=== PATIENT | male | born 1940 | race Caucasian/White ===

== ENCOUNTER → 2017-08-31 05:34 | Emergency (ER) | payer MEDICARE ==
[~2017-08-31 05:34] MED LIST: Albuterol/Ipratropium NEB.SOL* Albuterol 2.5 MG/Ipratropium 0.5 MG 3 ML INH ONE
[2017-08-31 07:02] LABS: Urine Bacteria Absent (Absent); Urine Bilirubin Negative (Negative); Urine Glucose Negative (Negative); Urine Nitrite Negative (Negative)
[2017-08-31 07:10] LABS: BUN/Creatinine Ratio 18.2 (8-20); EGFR African American 67.3 (>60); EGFR Non-African American 52.3 (>60); Globulin 2.6 g/dL (2-4); Magnesium 1.9 mg/dL (1.9-2.7); Potassium 4.3 mmol/L (3.5-5.0); Total Bilirubin 1.1 mg/dL (0.2-1.0); Total Protein 6.6 g/dL (6.4-8.9); Troponin I 0.01 ng/mL (<0.04)
[2017-08-31 07:16] LABS: Hematocrit 49 % (42-52); Hemoglobin 16.6 g/dl (14.0-18.0); Mean Corpuscular HGB Conc 34 g/dl (31-36); Mean Corpuscular Hemoglobin 31 pg (27-31); Mean Corpuscular Volume 93 fL (80-94); Mean Platelet Volume 8 um3 (7.4-10.4); Red Blood Count 5.29 10^6/ul (4.0-5.4); Red Cell Distribution Width 13 % (10.5-15); White Blood Count 9.5 10^3/ul (3.5-10.8)
--- NOTE | 2017-08-31 08:37 | RAD ---
HISTORY: Left flank pain COMPARISONS: None TECHNIQUE: Multiple contiguous axial CT scans were obtained of the lumbar spine without intravenous contrast, with coronal and sagittal multiplanar reformations. FINDINGS: SPINAL CANAL: Evaluation of the central canal is limited on CT technique; however, there is no obvious canalicular mass or epidural hemorrhage. ALIGNMENT: There is mild scoliotic curvature of the spine. There is grade 1 retrolisthesis of L2 on L3 and L3-L4 with grade 1 anterolisthesis of L5 on S1. VERTEBRAL BODIES: There are bilateral pars defects at L5. There is multilevel anterolateral marginal osteophyte formation. JOINTS: There is diffuse facet osteoarthritis. MUSCULATURE: Unremarkable INTERVERTEBRAL DISCS: There is diffuse loss of intervertebral disc height throughout the spine. AXIAL IMAGES: T12-L1: There is no osseous neural foraminal narrowing or central canal stenosis. L1-L2: There is no osseous neural foraminal narrowing or central canal stenosis. L2-L3: There is no osseous neural foraminal narrowing or central canal stenosis. L3-L4: There is marginal osteophyte formation at the neural foramina bilaterally. There is bilateral facet hypertrophy. There is mild bilateral neural foraminal narrowing. There is no osseous central canal stenosis. L4-L5: There is bilateral facet hypertrophy. There is marginal osteophyte formation at the neural foramina bilaterally. There is mild bilateral neural foraminal narrowing. There is vacuum phenomenon consistent with a small left paracentral disc protrusion, 0.3 cm in depth. There is no osseous central canal stenosis. L5-S1: There is a broad-based disc/rolled disc. There is bilateral facet hypertrophy. There is severe bilateral foraminal. There is no significant osseous central canal stenosis. SOFT TISSUES: There is atherosclerosis of the abdominal aorta. OTHER: None IMPRESSION: 1. SCOLIOSIS. 2. 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 3. DEGENERATIVE DISC DISEASE AND OSTEOARTHRITIS. 4. THERE IS SEVERE BILATERAL NEURAL FORAMINAL NARROWING L5-S1. THERE IS NO OSSEOUS CENTRAL CANAL STENOSIS.
--- NOTE | 2017-08-31 10:11 | RAD ---
HISTORY: Chest pain COMPARISONS: December 26, 2013 VIEWS: 4: Frontal dual-energy and lateral views of the chest. FINDINGS: CARDIOMEDIASTINAL SILHOUETTE: The cardiomediastinal silhouette is normal. HILL: The hill are normal. PLEURA: The costophrenic angles are sharp. No pleural abnormalities are noted. LUNG PARENCHYMA: The lungs are clear. ABDOMEN: The upper abdomen is clear. There is no subphrenic gas. BONES AND SOFT TISSUES: No bone or soft tissue abnormalities are noted. OTHER: None. IMPRESSION: NO ACTIVE CARDIOPULMONARY DISEASE.
[2017-08-31 11:41] VITALS: BP 151/96
--- NOTE | 2017-08-31 15:52 | ED ---
Raphael Rabago Thomas, scribed for Israel Garber MD on 08/31/17 at 0737 . Abdominal Pain/Male - HPI Summary HPI Summary: The pt is a 77 y/o M presenting to the ED c/o L flank pain that began yesterday at 20:00 when he was coughing. The pain is constant. The pain is described as an ache. The pain radiates into his left lower back. The pain is rated 5/10. The pain is aggravated by moving his LLE up and down as well as coughing. It is alleviated by nothing. When the patient lifts his LLE, his pain radiates to his back. The pain is not reproducible. The patient has treated the pain with nothing PLATER HOT DIP. Pt additionally c/o urinary frequency. He was unable to sleep last night secondary to the pain. PMHx: CVA, HTN. SHx: no smoking, no alcohol use, no illicit drug use. His is in the room. He declines pain medication. - History of Current Complaint Chief Complaint: EDFlankPain Stated Complaint: LLQ PAIN Time Seen by Provider: 08/31/17 07:29 Hx Obtained From: Patient, Family/Shear Operator Helper - is in the room Onset/Duration: Lasting Days - onset yesterday at 20:00, Still Present Timing: Constant Severity Currently: Moderate Pain Intensity: 5 Pain Scale Used: 0-10 Numeric Location: Flank - Left flank Radiates: Yes Radiates to: Back Character: Other: - Ache Aggravating Factor(s): Movement - moving his LLE up and down, Deep Breaths Alleviating Factor(s): Nothing Associated Signs And Symptoms: Positive: Other - Urinary frequency, insomnia last night secondary to the pain. - Allergies/Home Medications Allergies/Adverse Reactions: Allergies Allergy/AdvReac Type Severity Reaction Status Date / Time No Known Allergies Allergy Verified 06/03/16 13:47 PMH/Surg Hx/FS Hx/Imm Hx Previously Healthy: No Cardiovascular History: Reports: Hx Hypertension, Hx Syncope, Other Cardiovascular Problems/Disorders - blocked carotid Respiratory History: Reports: Hx Sleep Apnea - CPAP at home at night Musculoskeletal History: Denies: Hx Arthritis, Hx Osteoporosis Sensory History: Reports: Hx Vision Problem, Hx Hearing Problem Opthamlomology History: Reports: Hx Vision Problem - Surgical History Surgery Procedure, Year, and Place: appy Hx Anesthesia Reactions: No Infectious Disease History: No Infectious Disease History: Denies: Traveled Outside the [place] in Last 30 Days - Family History Known Family History: Positive: Diabetes, Other - CHF - Social History Alcohol Use: None Substance Use Type: Reports: None Smoking Status (MU): Never Smoked Tobacco Review of Systems Negative: Fever Positive: Other - Nasal congestion Positive: Chest Pain Positive: Cough Positive: frequency, flank pain - L flank pain onset yesterday at 20:00 Neurological: Other - Insomnia last night secondary to the pain All Other Systems Reviewed And Are Negative: Yes Physical Exam Triage Information Reviewed: Yes Vital Signs On Initial Exam: Initial Vitals Temp Pulse Resp BP Pulse Ox 98.8 F 120 20 180/111 96 08/31/17 05:38 08/31/17 05:38 08/31/17 05:38 08/31/17 05:38 08/31/17 05:38 Vital Signs Reviewed: Yes Appearance: Positive: Well-Appearing, No Pain Distress Skin: Positive: Warm, Skin Color Reflects Adequate Perfusion, Dry Head/Face: Positive: Normal Head/Face Inspection Eyes: Positive: Normal ENT: Positive: Normal ENT inspection Neck: Positive: Supple, Nontender Respiratory/Lung Sounds: Positive: Clear to Auscultation, Breath Sounds Present Cardiovascular: Positive: RRR Abdomen Description: Positive: Nontender, Soft Bowel Sounds: Positive: Present Musculoskeletal: Positive: Other - He is tender to the left paralumbar area Neurological: Positive: Normal Psychiatric: Positive: Normal, Affect/Mood Appropriate - [place] Coma Scale Coma Scale Total: 15 Diagnostics - Vital Signs Vital Signs Temp Pulse Resp BP Pulse Ox 08/31/17 05:38 98.8 F 120 20 180/111 96 - Laboratory Lab Results: Lab Results 08/31/17 08/31/17 08/31/17 Range/Units 06:30 06:30 06:30 WBC 9.5 (3.5-10.8) 10^3/ul RBC 5.29 (4.0-5.4) 10^6/ul Hgb 16.6 (14.0-18.0) g/dl Hct 49 (42-52) % MCV 93 (80-94) fL MCH 31 (27-31) pg MCHC 34 (31-36) g/dl RDW 13 (10.5-15) % Plt Count 217 (150-450) 10^3/ul MPV 8 (7.4-10.4) um3 Neut % (Auto) 82.6 (38-83) % Lymph % (Auto) 6.7 L (25-47) % [place] % (Auto) 9.1 H (1-9) % Eos % (Auto) 1.4 (0-6) % Baso % (Auto) 0.2 (0-2) % Absolute Neuts (auto) 7.9 H (1.5-7.7) 10^3/ul Absolute Lymphs (auto) 0.6 L (1.0-4.8) 10^3/ul Absolute Monos (auto) 0.9 H (0-0.8) 10^3/ul Absolute Eos (auto) 0.1 (0-0.6) 10^3/ul Absolute Basos (auto) 0 (0-0.2) 10^3/ul Absolute Nucleated RBC 0.01 10^3/ul Nucleated RBC % 0.1 Sodium 141 (133-145) mmol/L Potassium 4.3 (3.5-5.0) mmol/L Chloride 110 (101-111) mmol/L Carbon Dioxide 24 (22-32) mmol/L Anion Gap 7 (2-11) mmol/L BUN 24 (6-24) mg/dL Creatinine 1.32 H (0.67-1.17) mg/dL Est GFR ( Amer) 67.3 (>60) Est GFR (Non-Af Amer) 52.3 (>60) BUN/Creatinine Ratio 18.2 (8-20) Glucose 120 H (70-100) mg/dL Calcium 10.0 (8.6-10.3) mg/dL Magnesium 1.9 (1.9-2.7) mg/dL Total Bilirubin 1.10 H (0.2-1.0) mg/dL AST 16 (13-39) U/L ALT 13 (7-52) U/L Alkaline Phosphatase 79 (34-104) U/L Troponin I 0.01 (<0.04) ng/mL Total Protein 6.6 (6.4-8.9) g/dL Albumin 4.0 (3.2-5.2) g/dL Globulin 2.6 (2-4) g/dL Albumin/Globulin Ratio 1.5 (1-3) Urine Color Yellow Urine Appearance Clear Urine pH 6.0 (5-9) Ur Specific [place] 1.015 (1.010-1.030) Urine Protein 1+(30 mg/dl) H (Negative) Urine Ketones Negative (Negative) Urine Blood Negative (Negative) Urine Nitrate Negative (Negative) Urine Bilirubin Negative (Negative) Urine Urobilinogen Negative (Negative) Ur Leukocyte Esterase Negative (Negative) Urine WBC (Auto) Trace(0-5/hpf) (Absent) Urine RBC (Auto) Trace(0-2/hpf) (Absent) Urine Bacteria Absent (Absent) Urine Glucose Negative (Negative) Urine Ascorbic Acid * H (Negative) Result Diagrams: 08/31/17 06:30 08/31/17 06:30 Lab Statement: Any lab studies that have been ordered have been reviewed, and results considered in the medical decision making process. - Radiology CXR Xray Interpretation: No Acute Changes - No active cardiopulmonary disease. ED physician has read this report and agrees. Radiology Interpretation Completed By: Radiologist - CT CT L-Spine CT Interpretation: No Acute Changes - 1. SCOLIOSIS. 2. 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 3. DEGENERATIVE DISC DISEASE AND OSTEOARTHRITIS. 4. THERE IS SEVERE BILATERAL NEURAL FORAMINAL NARROWING L5-S1. THERE IS NO OSSEOUS CENTRAL CANAL STENOSIS. ED Physician has reviewed this report and agrees. CT Interpretation Completed By: Radiologist - EKG 09:19 Cardiac Rate: Tachycardia - 101 BPM EKG Rhythm: Sinus Tachycardia EKG Interpretation: Nonspecific changes. Re-Evaluation - Re-Evaluation First Eval Re-Evaluation Time: 09:15 Change: Worse Comment: The patient is now complaining of a burning anterior chest pain. He has had URI symptoms for the last two days including congestion and cough. He has wheezing in the right side of his lung ahynes. Abdominal Pain Fem Course/Dx - Course Course Of Treatment: Mr. Elizabeth started with left flank pain yesterday after coughing. He has a herniated disc on CT and I think this was aggravated by the coughing. He began to C/O CP at D/C and at that time had developed woome mild wheezing. The wheezing and CP both resolved with a duoneb. I will treat him with a steroid burst which should help both problems and an antibiotic. His says that he has had a cold for a few days. - Diagnoses Provider Diagnoses: Lumbar radiculopathy, Bronchitis Discharge - Discharge Plan Condition: Stable Disposition: HOME Prescriptions: Clarithromycin TAB* [Biaxin TAB*] 500 mg PO BID #20 tab Methylprednisolone [Medrol Dosepak 4 MG*] 4 mg PO .SEE CL INSTRUCTION #1 tab Patient Education Materials: Acute Bronchitis (ED), Lumbar Radiculopathy (ED) Referrals: [facility] PHYSICIAN REFERRAL [Outside] - 3 Days Additional Instructions: Follow up with your primary care provider in 3 days. If you do not have one, use the [facility] Physician Referral Service to make an appointment with one. Return to the emergency department for any new or worsening symptoms. The documentation as recorded by the Raphael muhammad Thomas accurately reflects the service I personally performed and the decisions made by me, Israel Garber MD.
== END | disposition home or self-care (01) ==
LOC: ED 05:34
DX: M54.16 Radiculopathy, lumbar region (principal); J40 Bronchitis, not specified as acute or chronic; R10.84 Generalized abdominal pain; R07.9 Chest pain, unspecified; R05 Cough; R10.32 Left lower quadrant pain
CPT/HCPCS: 36415; 71020; 72131; 80053; 81003; 81015; 83735; 84484; 85025; 93005; 94640; 99282; A9270-GY

== ENCOUNTER 2024-03-29 18:37 | Inpatient (IN) ==
[2024-03-29 20:55] LABS: ABS Eosinophils 0.1 10^3/uL (0.0-0.5); ABS Lymphocytes 1.1 10^3/uL (1.0-4.8); ABS Monocytes 0.6 10^3/uL (0.0-1.1); ABS Neutrophils 8.5 10^3/uL (1.5-7.6); ABS Nucleated RBC 0.01 10^3/ul; Eosinophil % 0.7 %; Hematocrit 38.9 % (38-53); Hemoglobin 13.3 g/dL (13.2-16.3); Lymphocyte % 10.9 %; Mean Corpuscular Hemoglobin 32.4 pg (27-33); Mean Corpuscular Hgb Conc 34.2 g/dL (31-36); Mean Corpuscular Volume 94.7 fL (80-97); Mean Platelet Volume 8.1 fL (7.5-11.2); Platelet Count 231 10^3/uL (150-450); Red Blood Count 4.11 10^6/uL (4.06-5.63); Red Cell Distribution Width 13.3 % (12-17); White Blood Count 10.4 10^3/uL (3.6-10.2)
[2024-03-29 21:14] LABS: ALT 8 U/L (7-52); AST 11 U/L (13-39); Albumin 4.1 g/dL (3.2-5.2); Alcohol, S < 13 mg/dL (<13); Alkaline Phosphatase 81 U/L (35-149); Anion Gap 14 mmol/L (2-16); Blood Urea Nitrogen 43 mg/dL (6-24); CO2 Carbon Dioxide 24 mmol/L (22-32); Calcium 9.4 mg/dL (8.6-10.3); Chloride 108 mmol/L (101-111); Creatinine, Serum 2.66 mg/dL (0.67-1.17); Globulin 2.1 g/dL (2-4); Glucose 108 mg/dL (70-100); Magnesium 2.2 mg/dL (1.9-2.7); Potassium 4.2 mmol/L (3.5-5.0); Sodium 146 mmol/L (135-145); Total Bilirubin 0.7 mg/dL (0.2-1.0); Total Protein 6.2 g/dL (6.4-8.9); eGFR CKD-EPI 22.8 (>60)
[2024-03-29 21:16] LABS: High Sens Troponin Baseline 7 pg/mL (<20)
[2024-03-29 21:29] LABS: TSH Ultra Thyroid Stim Horm 3.18 mcIU/mL (0.34-5.60)
[2024-03-29 22:38] LABS: High Sensitivity Troponin 1 Hr 8 pg/mL (<20)
[2024-03-29 22:56] LABS: Urine Appearance Clear; Urine Bilirubin Negative (Negative); Urine Blood Negative (Negative); Urine Color Light-Yellow; Urine Glucose Negative (Negative); Urine Ketones Negative (Negative); Urine Nitrite Negative (Negative); Urine Protein Trace (Negative); Urine Specific Gravity 1.017 (1.002-1.030); Urine Urobilinogen Negative (Negative)
[2024-03-30] MEDS: Lactated Ringers 1000 ml BAG 1,000 ML IV SCH (00:53)
[2024-03-30] MEDS: Nystatin TOP POWDER 15 GM BTL TOPICAL SCH (02:01)
[2024-03-30] MEDS ORDERED: Senna TAB 8.6 mg TAB PO PRN (04:38)
[2024-03-30 04:48] LABS: Cholesterol 112 mg/dL; LDL Cholesterol 39 mg/dL; Triglycerides 102 mg/dL
[2024-03-30] MEDS: Heparin 5000 UNITS/ML 1 mL VIAL SUBCUT SCH (05:27)
[2024-03-30 06:39] LABS: ABS Eosinophils 0.1 10^3/uL (0.0-0.5); ABS Lymphocytes 1.3 10^3/uL (1.0-4.8); ABS Monocytes 0.6 10^3/uL (0.0-1.1); ABS Neutrophils 5.7 10^3/uL (1.5-7.6); Eosinophil % 1.4 %; Hematocrit 34.2 % (38-53); Hemoglobin 11.8 g/dL (13.2-16.3); Lymphocyte % 16.6 %; Mean Corpuscular Hemoglobin 32.9 pg (27-33); Mean Corpuscular Hgb Conc 34.7 g/dL (31-36); Mean Platelet Volume 8.3 fL (7.5-11.2); Nucleated Red Blood Cells % 0.1 %/100WBC (0.0-0.8); Platelet Count 211 10^3/uL (150-450); Red Blood Count 3.59 10^6/uL (4.06-5.63); Red Cell Distribution Width 13.4 % (12-17); White Blood Count 7.7 10^3/uL (3.6-10.2)
[2024-03-30 06:52] LABS: Activated Partial Thrombo Time 28.3 seconds (26.0-38.0); INR 1.03 (0.83-1.13)
[2024-03-30 07:01] LABS: Creatinine, Serum 2.48 mg/dL (0.67-1.17); Magnesium 2.1 mg/dL (1.9-2.7); Potassium 4.4 mmol/L (3.5-5.0); eGFR CKD-EPI 24.8 (>60)
[2024-03-30] MEDS: Aspirin EC 81 mg TAB.EC (enteric coated) PO SCH (08:26)
[2024-03-31 06:44] LABS: Hematocrit 34.6 % (38-53); Hemoglobin 11.8 g/dL (13.2-16.3); Mean Corpuscular Hemoglobin 32.2 pg (27-33); Mean Corpuscular Volume 94.6 fL (80-97); Mean Platelet Volume 8.3 fL (7.5-11.2); Platelet Count 210 10^3/uL (150-450); Red Blood Count 3.65 10^6/uL (4.06-5.63); White Blood Count 6.9 10^3/uL (3.6-10.2)
[2024-03-31 07:40] LABS: Calcium 9.1 mg/dL (8.6-10.3); Creatinine, Serum 2.27 mg/dL (0.67-1.17); Potassium 4.3 mmol/L (3.5-5.0); eGFR CKD-EPI 27.6 (>60)
[2024-03-31] MEDS: Lactated Ringers 1000 ml BAG 1,000 ML IV ONE (07:41)
[2024-03-31] MEDS: Lactated Ringers 1000 ml BAG 1,000 ML IV SCH (18:09)
[2024-03-31] MEDS: Polyethylene Glycol 3350 17 GM PACKET PO PRN (18:09)
[2024-04-01 08:03] LABS: Calcium 8.9 mg/dL (8.6-10.3); Creatinine, Serum 1.99 mg/dL (0.67-1.17); Potassium 4.7 mmol/L (3.5-5.0); eGFR CKD-EPI 32.3 (>60)
[2024-04-01 23:55] LABS: High Sensitivity Troponin 1 Hr 8 pg/mL (<20)
[2024-04-02 16:14] LABS: ABS Basophils 0.1 10^3/uL (0.0-0.1); ABS Eosinophils 0.3 10^3/uL (0.0-0.5); ABS Lymphocytes 1.3 10^3/uL (1.0-4.8); ABS Monocytes 0.6 10^3/uL (0.0-1.1); ABS Neutrophils 5.7 10^3/uL (1.5-7.6); ABS Nucleated RBC 0.01 10^3/ul; Eosinophil % 3.4 %; Hematocrit 32.8 % (38-53); Lymphocyte % 16.7 %; Mean Corpuscular Hemoglobin 32.4 pg (27-33); Mean Corpuscular Hgb Conc 33.7 g/dL (31-36); Mean Corpuscular Volume 96.1 fL (80-97); Mean Platelet Volume 9.2 fL (7.5-11.2); Nucleated Red Blood Cells % 0.1 %/100WBC (0.0-0.8); Platelet Count 204 10^3/uL (150-450); Red Blood Count 3.41 10^6/uL (4.06-5.63); Red Cell Distribution Width 13.2 % (12-17)
[2024-04-02 16:35] LABS: ABS Eosinophils 0.2 10^3/uL (0.0-0.5); ABS Lymphocytes 1.3 10^3/uL (1.0-4.8); ABS Monocytes 0.6 10^3/uL (0.0-1.1); ABS Neutrophils 5.3 10^3/uL (1.5-7.6); Eosinophil % 2.3 %; Hematocrit 35.4 % (38-53); Lymphocyte % 17.6 %; Mean Corpuscular Hemoglobin 32.4 pg (27-33); Mean Corpuscular Hgb Conc 33.8 g/dL (31-36); Mean Corpuscular Volume 95.9 fL (80-97); Mean Platelet Volume 7.9 fL (7.5-11.2); Platelet Count 229 10^3/uL (150-450); Red Blood Count 3.69 10^6/uL (4.06-5.63); Red Cell Distribution Width 13.6 % (12-17); White Blood Count 7.4 10^3/uL (3.6-10.2)
[2024-04-02 17:11] LABS: Calcium 9.3 mg/dL (8.6-10.3); Creatinine, Serum 1.96 mg/dL (0.67-1.17); Potassium 4.7 mmol/L (3.5-5.0); eGFR CKD-EPI 32.9 (>60)
[2024-04-03 09:38] LABS: Hematocrit 36.4 % (38-53); Hemoglobin 12.1 g/dL (13.2-16.3); Mean Corpuscular Hemoglobin 32.1 pg (27-33); Mean Corpuscular Hgb Conc 33.2 g/dL (31-36); Mean Corpuscular Volume 96.5 fL (80-97); Mean Platelet Volume 8.5 fL (7.5-11.2); Platelet Count 235 10^3/uL (150-450); Red Blood Count 3.77 10^6/uL (4.06-5.63); Red Cell Distribution Width 13.5 % (12-17); White Blood Count 8.1 10^3/uL (3.6-10.2)
[2024-04-03 10:04] LABS: Calcium 9.4 mg/dL (8.6-10.3); Creatinine, Serum 1.81 mg/dL (0.67-1.17); Potassium 4.5 mmol/L (3.5-5.0); eGFR CKD-EPI 36.2 (>60)
[2024-04-04 08:23] LABS: Hematocrit 33.8 % (38-53); Hemoglobin 11.5 g/dL (13.2-16.3); Mean Corpuscular Hemoglobin 32.2 pg (27-33); Mean Corpuscular Hgb Conc 33.9 g/dL (31-36); Mean Platelet Volume 7.9 fL (7.5-11.2); Platelet Count 232 10^3/uL (150-450); Red Blood Count 3.56 10^6/uL (4.06-5.63); Red Cell Distribution Width 13.3 % (12-17); White Blood Count 9.5 10^3/uL (3.6-10.2)
[2024-04-04 08:58] LABS: Calcium 9.2 mg/dL (8.6-10.3); Creatinine, Serum 1.86 mg/dL (0.67-1.17); Potassium 4.3 mmol/L (3.5-5.0)
[2024-04-04] MEDS: Nitroglycerin 0.3 mg TAB SL PRN (23:16)
[2024-04-05] MEDS: Al Hydrox/Mg Hydrox/Simet LIQ 30 ML UDC PO ONE (00:01)
[2024-04-05 06:21] LABS: Hematocrit 33.4 % (38-53); Hemoglobin 11.4 g/dL (13.2-16.3); Mean Corpuscular Hemoglobin 32.3 pg (27-33); Mean Corpuscular Hgb Conc 34.2 g/dL (31-36); Mean Corpuscular Volume 94.5 fL (80-97); Platelet Count 243 10^3/uL (150-450); Red Blood Count 3.54 10^6/uL (4.06-5.63); Red Cell Distribution Width 13.6 % (12-17); White Blood Count 10.7 10^3/uL (3.6-10.2)
[2024-04-05 06:45] LABS: Calcium 8.9 mg/dL (8.6-10.3); Creatinine, Serum 1.78 mg/dL (0.67-1.17); Potassium 4.4 mmol/L (3.5-5.0); eGFR CKD-EPI 36.9 (>60)
[2024-04-05] MEDS: Al Hydrox/Mg Hydrox/Simet LIQ 30 ML UDC PO PRN (09:57)
[2024-04-05 14:22] LABS: High Sensitivity Troponin 1 Hr 14 pg/mL (<20)
[2024-04-05 15:55] LABS: High Sensitivity Troponin 3 Hr 13 pg/mL (<20)
[2024-04-05 18:34] VITALS: BP 131/82
== END 2024-04-05 19:19 | disposition short-term general hospital (02) | DRG 65 ==
LOC: ED 18:37 → EDHOLD 18:37 → SUATTDRO 22:50 → MEDTELE 23:44 → SUATTDRO 03-30 → MEDTELE 03-30 01:46
PROVIDERS: ADMIT Internal Medicine; ATTEND Internal Medicine